=== PATIENT | female | born 1975 | race African-American/Black ===

== ENCOUNTER 2021-04-15 05:50 | Inpatient (IN) | payer SELFPAY ==
[2021-04-15] MEDS ORDERED: Ketorolac Tromethamine 30 MG/ML VIAL ONE (06:14)
[2021-04-15] MEDS ORDERED: Ondansetron PF 4 MG/2 ML Vial ONE (06:14)
[2021-04-15] MEDS ORDERED: Piperacillin/Tazobactam 3.375 GM VIAL ONE (06:14)
[2021-04-15 06:29] LABS: Hemoglobin 10.5 g/dL (12.0-16.0); Mean Corpuscular HGB CONC 32.7 g/dL (32.0-36.0); Mean Corpuscular Hemoglobin 30.1 pg (27.0-31.0); Mean Platelet Volume 8.1 fL (7.4-10.4); Platelet Count 433 thou/uL (130-400); RBC Distribution Width 12.6 % (11.5-14.5); Red Blood Cell (RBC) Count 3.48 mill/uL (4.20-5.40); White Blood Cell (WBC) Count 18.7 thou/uL (4.8-10.8)
[2021-04-15 06:48] LABS: ALT (SGPT) 37 U/L (8-55); AST (SGOT) 41 U/L (5-34); Albumin 2.9 g/dL (3.5-5.0); Alkaline Phosphatase 150 U/L (40-110); Anion Gap 15 mmol/L (10-20); BUN (Urea Nitrogen) 9 mg/dL (7.0-18.7); Bilirubin, Total 1.2 mg/dL (0.2-1.2); Calc. Creatinine Clearance 0 mL/min (70-130); Calcium 8.6 mg/dL (7.8-10.44); Carbon Dioxide 26 mmol/L (22-29); Chloride 96 mmol/L (98-107); Globulin 4.5 g/dL (2.4-3.5); Glucose 156 mg/dL (70-105); Lipase 23 U/L (8-78); Protein, Total 7.4 g/dL (6.0-8.3); Sodium 134 mmol/L (136-145)
[2021-04-15 06:49] LABS: BHCG - Serum Negative (NEGATIVE); Pregs Control Background? CLEAR/WHITE (CLR/WHITE); Pregs Control Bar Appear? YES (CONTROL BAR)
[2021-04-15 06:50] LABS: Band 28 % (5-11); Lymphocytes 5 % (21-51); MDiff Complete? YES; Monocytes 4 % (0-10); Neutrophil 63 % (42-75)
[2021-04-15 06:54] LABS: Potassium 2.8 mmol/L (3.5-5.1)
[2021-04-15] MEDS ORDERED: Metoclopramide HCl 10 MG/2 ML VIAL ONE (07:01)
[2021-04-15] MEDS ORDERED: Vancomycin 1 GM/200 ML BAG ONE (07:07)
[2021-04-15 07:50] LABS: Bilirubin Negative (Negative); Blood, Urine Negative (Negative); Clarity Clear (Clear); Glucose, Urine (Dipstick) Normal (Negative); Ketone, Urine Negative (Negative); Leukocyte Negative Leu/uL (Negative); Nitrite Negative (Negative); Protein, Urine (Dipstick) 20 mg/dL (Neg-Trace); Specific Gravity, Urine 1.045 (1.002-1.036); Urobilinogen Normal mg/dL (Less than 2); pH, Urine 5.5 (5.0-9.0)
[2021-04-15] MEDS ORDERED: Iopamidol-370 76% 500 ML 1 ML ONE (08:35)
[2021-04-15] MEDS ORDERED: Pot Chloride/Pot Bicarb/Cit Ac 25 mEq Effervescent Tablet ONE (08:54)
[2021-04-15 09:21] LABS: Lactic Acid 2.7 mmol/L (0.5-2.2)
[2021-04-15] MEDS ORDERED: Piperacillin/Tazobactam 3.375 GM in Sodium Chloride 0.9% 100 ML IVPB SCH (09:30)
[2021-04-15] MEDS ORDERED: Lactated Ringer's 1,000 ML IV SCH (09:45)
[2021-04-15 10:12] LABS: SARS-CoV-2 NAA Rapid Test Not Detected (NotDetected)
[2021-04-15] MEDS ORDERED: HYDROcodone/Acetaminophen 5/325 mg Tablet PO PRN (11:53)
[2021-04-15] MEDS ORDERED: Ondansetron ODT 4 MG TAB PO PRN (11:53)
[2021-04-15] MEDS ORDERED: Morphine 2 MG/ML VIAL SLOW IVP PRN (11:53)
[2021-04-15] MEDS ORDERED: Ondansetron PF 4 MG/2 ML Vial IVP PRN (11:53)
[2021-04-15] MEDS ORDERED: Potassium Chloride 20 MEQ in Lactated Ringer's 1,000 ML IV SCH (12:00)
[2021-04-15] MEDS: Potassium Chloride 20 MEQ in Lactated Ringer's 1,000 ML IV SCH ×2 (12:56→22:05)
[2021-04-15] MEDS: Piperacillin/Tazobactam 3.375 GM in Sodium Chloride 0.9% 100 ML IVPB SCH ×2 (14:44→22:06)
[2021-04-15] MEDS: Famotidine/PF 20 mg/2ml Vial SLOW IVP SCH (22:05)
[2021-04-15] MEDS: Cefepime 2 GM in Sodium Chloride 0.9% 100 ML IVPB SCH (22:06)
[2021-04-16 05:04] LABS: Hemoglobin 9.3 g/dL (12.0-16.0); Mean Corpuscular HGB CONC 33.6 g/dL (32.0-36.0); Mean Corpuscular Hemoglobin 31.2 pg (27.0-31.0); Mean Corpuscular Volume 92.7 fL (78.0-98.0); Mean Platelet Volume 7.9 fL (7.4-10.4); Platelet Count 388 thou/uL (130-400); RBC Distribution Width 12.9 % (11.5-14.5); Red Blood Cell (RBC) Count 2.99 mill/uL (4.20-5.40); White Blood Cell (WBC) Count 13.7 thou/uL (4.8-10.8)
[2021-04-16 05:24] LABS: Anion Gap 11 mmol/L (10-20); BUN (Urea Nitrogen) 6 mg/dL (7.0-18.7); Calc. Creatinine Clearance 142 mL/min (70-130); Calcium 8.4 mg/dL (7.8-10.44); Carbon Dioxide 27 mmol/L (22-29); Chloride 102 mmol/L (98-107); Glucose 111 mg/dL (70-105); Potassium 3.7 mmol/L (3.5-5.1); Sodium 136 mmol/L (136-145)
[2021-04-16 05:32] LABS: Band 50 % (5-11); Lymphocytes 18 % (21-51); MDiff Complete? YES; Monocytes 5 % (0-10); Neutrophil 26 % (42-75); Reactive Lymphocytes 1 % (0-10); Vacuoles SLIGHT
[2021-04-16] MEDS: Piperacillin/Tazobactam 3.375 GM in Sodium Chloride 0.9% 100 ML IVPB SCH ×3 (06:27→21:02)
[2021-04-16] MEDS: Potassium Chloride 20 MEQ in Lactated Ringer's 1,000 ML IV SCH ×2 (06:29→15:48)
[2021-04-16] MEDS ORDERED: Vancomycin HCl 1.25 GM in Sodium Chloride 0.9% 250 ML 250 ML IVPB SCH (08:00)
[2021-04-16] MEDS ORDERED: Vancomycin HCl 1 GM in Sodium Chloride 0.9% 250 ML 250 ML IVPB SCH (09:00)
[2021-04-16] MEDS ORDERED: Midazolam HCl 2 mg/2 ml Vial ONE (09:15)
[2021-04-16] MEDS ORDERED: Bupivacaine PF 0.5% 30 ML VIAL ONE (09:15)
[2021-04-16] MEDS ORDERED: Fentanyl 100 MCG/2 ML VIAL ONE ×3 (09:15→14:24)
[2021-04-16] MEDS ORDERED: Dexamethasone 20 MG/5 ML VIAL ONE (10:40)
[2021-04-16] MEDS ORDERED: Lidocaine 1% PF 5 ML VIAL ONE (10:40)
[2021-04-16] MEDS ORDERED: Ondansetron PF 4 MG/2 ML Vial ONE (10:40)
[2021-04-16] MEDS ORDERED: Glycopyrrolate 0.2 MG/ML 5 ML SYRINGE ONE (10:40)
[2021-04-16] MEDS ORDERED: PROPOFOL 200 MG/20 ML VIAL ONE (10:40)
[2021-04-16] MEDS ORDERED: Rocuronium Bromide 10 MG/ML (10ML VIAL) ONE (10:40)
[2021-04-16] MEDS: Enoxaparin Sodium 40 MG/0.4 ML SYRINGE SC SCH (10:53)
[2021-04-16] MEDS ORDERED: SUGAMMADEX SODIUM 200 MG/2 ML VIAL ONE (13:29)
[2021-04-16] MEDS ORDERED: Ondansetron HCl/PF 4 MG/2 ML Vial IVP PRN (13:42)
[2021-04-16] MEDS ORDERED: fentaNYL Citrate/PF 2,000 MCG in Sodium Chloride 0.9% 60 ML IV PRN ×2 (13:42→13:47)
[2021-04-16] MEDS ORDERED: Ondansetron PF 4 MG/2 ML Vial IVP PRN ×2 (13:42→13:47)
[2021-04-16] MEDS ORDERED: Zolpidem Tartrate 5 MG TAB PO PRN ×2 (13:42→13:47)
[2021-04-16] MEDS ORDERED: diphenhydrAMINE 50 MG/ML VIAL IVP PRN ×2 (13:42→13:47)
[2021-04-16] MEDS ORDERED: Promethazine HCl 25 MG/ML VIAL IM PRN ×3 (13:42→13:47)
[2021-04-16] MEDS ORDERED: diphenhydrAMINE 50 MG/ML VIAL IM PRN ×2 (13:42→13:47)
[2021-04-16] MEDS ORDERED: Naloxone HCl 0.4 mg/ml Vial IV PRN ×2 (13:42→13:47)
[2021-04-16] MEDS ORDERED: diphenhydrAMINE 25 MG CAP PO PRN ×2 (13:42→13:47)
[2021-04-16] MEDS ORDERED: Promethazine HCl 25 MG/ML VIAL IVPB PRN (13:42)
[2021-04-16] MEDS ORDERED: Communication Order-Pharmacy FS SCH ×2 (13:45→14:00)
[2021-04-16] MEDS ORDERED: Sodium Chloride 0.9% 10 ML ONE (14:03)
[2021-04-16 14:23] LABS: Hemoglobin 9.6 g/dL (12.0-16.0); Mean Corpuscular HGB CONC 32.8 g/dL (32.0-36.0); Mean Corpuscular Hemoglobin 30.9 pg (27.0-31.0); Mean Platelet Volume 8.5 fL (7.4-10.4); Platelet Count 330 thou/uL (130-400); White Blood Cell (WBC) Count 12.5 thou/uL (4.8-10.8)
[2021-04-16 14:42] LABS: Band 32 % (5-11); Lymphocytes 8 % (21-51); MDiff Complete? YES; Metamyelocyte 3 % (0-0); Monocytes 2 % (0-10); Neutrophil 54 % (42-75); Platelet Morphology Comment Appears Adequate; Polychromasia SLIGHT = 2-3 cells (100X) (0-2/hpf); Reactive Lymphocytes 1 % (0-10); Vacuoles SLIGHT
[2021-04-16] MEDS ORDERED: Phenylephrine 40 MG in Sodium Chloride 0.9% 250 ML 250 ML IVPB PRN (15:31)
[2021-04-16] MEDS ORDERED: niCARdipine 25 MG in Sodium Chloride 0.9% 250 ML 250 ML IVPB PRN (15:31)
[2021-04-16] MEDS: Cefepime 2 GM in Sodium Chloride 0.9% 100 ML IVPB SCH ×2 (15:43→21:58)
[2021-04-16] MEDS: Famotidine/PF 20 mg/2ml Vial SLOW IVP SCH ×2 (15:44→21:59)
[2021-04-16] MEDS: Sodium Chloride 0.9% 1,000 ML IV SCH (15:46)
[2021-04-16] MEDS ORDERED: Piperacillin/Tazobactam 3.375 GM VIAL ONE (20:26)
[2021-04-16] MEDS ORDERED: Sodium Chloride 0.9% 100 ML ONE (20:33)
[2021-04-16] MEDS ORDERED: Ketorolac Tromethamine 30 MG/ML VIAL ONE (20:45)
[2021-04-17] MEDS: Vancomycin HCl 1.25 GM in Sodium Chloride 0.9% 250 ML 250 ML IVPB SCH ×3 (00:26→23:54)
[2021-04-17] MEDS: Ketorolac Tromethamine 30 MG/ML VIAL IVP SCH ×4 (03:39→20:39)
[2021-04-17 04:09] LABS: Anion Gap 13 mmol/L (10-20); BUN (Urea Nitrogen) 10 mg/dL (7.0-18.7); Calc. Creatinine Clearance 100 mL/min (70-130); Calcium 7.7 mg/dL (7.8-10.44); Carbon Dioxide 21 mmol/L (22-29); Chloride 103 mmol/L (98-107); Glucose 110 mg/dL (70-105); Potassium 4.6 mmol/L (3.5-5.1); Sodium 132 mmol/L (136-145)
[2021-04-17 04:58] LABS: Band 16 % (5-11); Eosinophils 1 % (0-10); Hemoglobin 8.9 g/dL (12.0-16.0); Lymphocytes 13 % (21-51); MDiff Complete? YES; Mean Corpuscular Hemoglobin 31.1 pg (27.0-31.0); Mean Corpuscular Volume 94.2 fL (78.0-98.0); Mean Platelet Volume 7.7 fL (7.4-10.4); Monocytes 6 % (0-10); Neutrophil 60 % (42-75); Platelet Count 475 thou/uL (130-400); Platelet Morphology Comment Appears Increased; RBC Morphology Normal; Reactive Lymphocytes 4 % (0-10); Red Blood Cell (RBC) Count 2.87 mill/uL (4.20-5.40); White Blood Cell (WBC) Count 16.3 thou/uL (4.8-10.8)
[2021-04-17] MEDS: Piperacillin/Tazobactam 3.375 GM in Sodium Chloride 0.9% 100 ML IVPB SCH ×3 (05:25→21:36)
[2021-04-17] MEDS: Sodium Chloride 0.9% 1,000 ML IV SCH (05:25)
[2021-04-17] MEDS ORDERED: Bisacodyl 5 MG TAB PO PRN (07:33)
[2021-04-17] MEDS ORDERED: Bisacodyl 10 MG SUPP PR PRN (07:33)
[2021-04-17] MEDS: Famotidine 20 MG TAB PO SCH ×2 (08:32→20:39)
[2021-04-17] MEDS: MULTIVIT/IRON SULF/FOLIC ACID 1 EACH TAB PO SCH (08:33)
[2021-04-17] MEDS: Enoxaparin Sodium 40 MG/0.4 ML SYRINGE SC SCH (08:33)
[2021-04-17] MEDS: Famotidine/PF 20 mg/2ml Vial SLOW IVP SCH ×2 (08:34→20:40)
[2021-04-17] MEDS: Polyethylene Glycol 3350 17 GM Packet PO SCH (08:34)
[2021-04-17] MEDS: Acetaminophen 325 MG TAB PO PRN ×2 (13:16→20:39)
[2021-04-17 22:16] LABS: Vancomycin, Trough 24.2 ug/mL
[2021-04-17] MEDS: Vancomycin 1 GM in Premix Bag 1 BAG IVPB SCH (23:44)
[2021-04-18] MEDS: Ketorolac Tromethamine 30 MG/ML VIAL IVP SCH ×2 (04:00→08:19)
[2021-04-18] MEDS: Piperacillin/Tazobactam 3.375 GM in Sodium Chloride 0.9% 100 ML IVPB SCH ×3 (05:22→22:10)
[2021-04-18 06:09] LABS: Band 15 % (5-11); Eosinophils 1 % (0-10); Hemoglobin 8.3 g/dL (12.0-16.0); Lymphocytes 9 % (21-51); MDiff Complete? YES; Mean Corpuscular HGB CONC 31.9 g/dL (32.0-36.0); Mean Corpuscular Hemoglobin 29.7 pg (27.0-31.0); Mean Corpuscular Volume 92.9 fL (78.0-98.0); Mean Platelet Volume 7.3 fL (7.4-10.4); Monocytes 3 % (0-10); Neutrophil 72 % (42-75); Platelet Count 444 thou/uL (130-400); Platelet Morphology Comment Appears Increased; RBC Distribution Width 13.1 % (11.5-14.5); Red Blood Cell (RBC) Count 2.81 mill/uL (4.20-5.40); White Blood Cell (WBC) Count 21.1 thou/uL (4.8-10.8)
[2021-04-18 06:36] LABS: Anion Gap 10 mmol/L (10-20); BUN (Urea Nitrogen) 12 mg/dL (7.0-18.7); Calc. Creatinine Clearance 69 mL/min (70-130); Calcium 7.5 mg/dL (7.8-10.44); Carbon Dioxide 23 mmol/L (22-29); Chloride 101 mmol/L (98-107); Glucose 116 mg/dL (70-105); Potassium 3.4 mmol/L (3.5-5.1); Sodium 131 mmol/L (136-145)
[2021-04-18] MEDS: Enoxaparin Sodium 40 MG/0.4 ML SYRINGE SC SCH (08:19)
[2021-04-18] MEDS: Famotidine/PF 20 mg/2ml Vial SLOW IVP SCH (08:19)
[2021-04-18] MEDS: Polyethylene Glycol 3350 17 GM Packet PO SCH (08:24)
[2021-04-18] MEDS: Famotidine 20 MG TAB PO SCH ×2 (08:24→22:10)
[2021-04-18] MEDS ORDERED: Sodium Chloride 0.9% 1,000 ML IV SCH (09:00)
[2021-04-18] MEDS: MULTIVIT/IRON SULF/FOLIC ACID 1 EACH TAB PO SCH (09:45)
[2021-04-18] MEDS: Sodium Chloride 0.9% 1,000 ML IV SCH (11:11)
[2021-04-18] MEDS: Vancomycin 1 GM in Premix Bag 1 BAG IVPB SCH (11:14)
[2021-04-18] MEDS ORDERED: Potassium Chloride 20 MEQ TAB PO SCH (13:15)
[2021-04-18] MEDS: Acetaminophen 325 MG TAB PO PRN (18:48)
[2021-04-19] MEDS: Acetaminophen 325 MG TAB PO PRN (03:54)
[2021-04-19] MEDS: Sodium Chloride 0.9% 1,000 ML IV SCH (03:55)
[2021-04-19] MEDS: Piperacillin/Tazobactam 3.375 GM in Sodium Chloride 0.9% 100 ML IVPB SCH ×3 (05:32→22:43)
[2021-04-19 06:08] LABS: Anion Gap 10 mmol/L (10-20); BUN (Urea Nitrogen) 11 mg/dL (7.0-18.7); Calc. Creatinine Clearance 57 mL/min (70-130); Calcium 7.1 mg/dL (7.8-10.44); Carbon Dioxide 23 mmol/L (22-29); Chloride 106 mmol/L (98-107); Glucose 119 mg/dL (70-105); Sodium 135 mmol/L (136-145)
[2021-04-19 06:18] LABS: Band 7 % (5-11); Lymphocytes 8 % (21-51); MDiff Complete? YES; Mean Corpuscular HGB CONC 32.5 g/dL (32.0-36.0); Mean Corpuscular Hemoglobin 30.1 pg (27.0-31.0); Mean Corpuscular Volume 92.7 fL (78.0-98.0); Mean Platelet Volume 7.2 fL (7.4-10.4); Metamyelocyte 1 % (0-0); Monocytes 2 % (0-10); Neutrophil 78 % (42-75); Platelet Count 426 thou/uL (130-400); Platelet Morphology Comment Appears Increased; RBC Distribution Width 13.3 % (11.5-14.5); RBC Morphology Normal; Reactive Lymphocytes 4 % (0-10); Red Blood Cell (RBC) Count 2.67 mill/uL (4.20-5.40); White Blood Cell (WBC) Count 23.2 thou/uL (4.8-10.8)
[2021-04-19] MEDS: Polyethylene Glycol 3350 17 GM Packet PO SCH (08:46)
[2021-04-19] MEDS: Famotidine/PF 20 mg/2ml Vial SLOW IVP SCH (09:53)
[2021-04-19] MEDS: Heparin 5,000 UNITS/ML VIAL SC SCH ×2 (09:59→20:22)
[2021-04-19] MEDS: Famotidine 20 MG TAB PO SCH ×2 (09:59→20:22)
[2021-04-19] MEDS: MULTIVIT/IRON SULF/FOLIC ACID 1 EACH TAB PO SCH (10:00)
[2021-04-19 11:32] LABS: Vancomycin, Trough 20.9 ug/mL
[2021-04-19] MEDS: HYDROcodone/Acetaminophen 5/325 mg Tablet PO PRN (20:21)
[2021-04-20] MEDS: Sodium Chloride 0.9% 1,000 ML IV SCH ×2 (03:20→22:12)
[2021-04-20] MEDS: Piperacillin/Tazobactam 3.375 GM in Sodium Chloride 0.9% 100 ML IVPB SCH ×3 (05:14→22:12)
[2021-04-20 05:38] LABS: Band 6 % (5-11); Eosinophils 1 % (0-10); Hemoglobin 7.2 g/dL (12.0-16.0); Hypochromia SLIGHT = 6-15 cells (100X) (0-5/hpf); Lymphocytes 17 % (21-51); MDiff Complete? YES; Mean Corpuscular HGB CONC 30.2 g/dL (32.0-36.0); Mean Corpuscular Hemoglobin 28.1 pg (27.0-31.0); Mean Platelet Volume 7.2 fL (7.4-10.4); Neutrophil 76 % (42-75); Platelet Count 469 thou/uL (130-400); Platelet Morphology Comment Appears Increased; RBC Distribution Width 13.5 % (11.5-14.5); Red Blood Cell (RBC) Count 2.56 mill/uL (4.20-5.40)
[2021-04-20 05:46] LABS: Anion Gap 9 mmol/L (10-20); BUN (Urea Nitrogen) 11 mg/dL (7.0-18.7); Calc. Creatinine Clearance 55 mL/min (70-130); Calcium 7.8 mg/dL (7.8-10.44); Carbon Dioxide 24 mmol/L (22-29); Chloride 109 mmol/L (98-107); Glucose 99 mg/dL (70-105); Potassium 3.8 mmol/L (3.5-5.1); Sodium 138 mmol/L (136-145)
[2021-04-20] MEDS: Polyethylene Glycol 3350 17 GM Packet PO SCH (08:29)
[2021-04-20] MEDS: Heparin 5,000 UNITS/ML VIAL SC SCH ×2 (08:30→20:08)
[2021-04-20] MEDS: Famotidine 20 MG TAB PO SCH (08:30)
[2021-04-20] MEDS: MULTIVIT/IRON SULF/FOLIC ACID 1 EACH TAB PO SCH (09:00)
[2021-04-20] MEDS ORDERED: Pantoprazole 40 MG VIAL IVP SCH (09:45)
[2021-04-20] MEDS ORDERED: Albumin 25% 25 GM/100 ML BOT IVPB SCH (13:42)
[2021-04-20 14:31] LABS: Hemoglobin 7.8 g/dL (12.0-16.0)
[2021-04-20 14:31] LABS: Bacteria/HPF None Seen HPF (None Seen); Bilirubin Negative (Negative); Blood, Urine Negative (Negative); Clarity Clear (Clear); Glucose, Urine (Dipstick) Normal (Negative); Ketone, Urine Negative (Negative); Leukocyte Negative Leu/uL (Negative); Nitrite Negative (Negative); Protein, Urine (Dipstick) Negative (Neg-Trace); RBC/HPF None Seen HPF (0-3); Specific Gravity, Urine 1.004 (1.002-1.036); Squamous Epithelial 0-3 HPF (0-3); Urobilinogen Normal mg/dL (Less than 2); WBC/HPF 0-3 HPF (0-3); pH, Urine 5.5 (5.0-9.0)
[2021-04-20 14:32] LABS: Urine Culture Reflex No No
[2021-04-20 14:51] LABS: Creatinine, Urine 24.54 mg/dL (47-110); Protein, Urine Random Quant Less than 10 mg/dL (1-14); Sodium, Urine 22 mmol/L (Not Available); Urea Nitrogen, Random Urine 101 mg/dl
[2021-04-20] MEDS: HYDROcodone/Acetaminophen 5/325 mg Tablet PO PRN (20:07)
[2021-04-20] MEDS: Pantoprazole 40 MG VIAL IVP SCH (20:08)
[2021-04-21] MEDS: Piperacillin/Tazobactam 3.375 GM in Sodium Chloride 0.9% 100 ML IVPB SCH (05:28)
[2021-04-21] MEDS: HYDROcodone/Acetaminophen 5/325 mg Tablet PO PRN ×4 (05:28→19:43)
[2021-04-21 06:16] LABS: Band 7 % (5-11); Eosinophils 4 % (0-10); Hemoglobin 7.5 g/dL (12.0-16.0); Lymphocytes 13 % (21-51); MDiff Complete? YES; Mean Corpuscular HGB CONC 33.1 g/dL (32.0-36.0); Mean Corpuscular Hemoglobin 30.7 pg (27.0-31.0); Mean Corpuscular Volume 92.7 fL (78.0-98.0); Metamyelocyte 1 % (0-0); Monocytes 6 % (0-10); Myelocyte 1 % (0-0); Neutrophil 68 % (42-75); Nucleated RBC 1 % (0); Platelet Count 436 thou/uL (130-400); Platelet Morphology Comment Appears Increased; RBC Distribution Width 13.6 % (11.5-14.5); Red Blood Cell (RBC) Count 2.45 mill/uL (4.20-5.40); White Blood Cell (WBC) Count 18.4 thou/uL (4.8-10.8)
[2021-04-21 06:23] LABS: Albumin 2.4 g/dL (3.5-5.0); Anion Gap 11 mmol/L (10-20); BUN (Urea Nitrogen) 9 mg/dL (7.0-18.7); BUN/Creatinine Ratio 4.79; Calc. Creatinine Clearance 55 mL/min (70-130); Calcium 7.9 mg/dL (7.8-10.44); Carbon Dioxide 23 mmol/L (22-29); Chloride 107 mmol/L (98-107); Glucose 109 mg/dL (70-105); Phosphorus 3.1 mg/dL (2.3-4.7); Potassium 3.6 mmol/L (3.5-5.1); Sodium 137 mmol/L (136-145)
[2021-04-21] MEDS: MULTIVIT/IRON SULF/FOLIC ACID 1 EACH TAB PO SCH (09:00)
[2021-04-21] MEDS: Pantoprazole 40 MG VIAL IVP SCH ×2 (09:00→21:01)
[2021-04-21] MEDS: Heparin 5,000 UNITS/ML VIAL SC SCH ×2 (09:00→21:06)
[2021-04-21] MEDS: Amoxicillin/Potassium Clav 875 MG TAB PO SCH ×2 (09:00→21:01)
[2021-04-21] MEDS: Albumin 25% 25 GM/100 ML BOT IVPB SCH ×2 (09:00→14:00)
[2021-04-21] MEDS: Polyethylene Glycol 3350 17 GM Packet PO SCH (09:00)
[2021-04-21 15:57] LABS: Iron 20 ug/dL (50-170); Iron Binding Capacity, Total 103 mcg/dL (265-497)
[2021-04-21] MEDS ORDERED: GoLYTELY 4,000 ml Bottle PO SCH (17:00)
[2021-04-21] MEDS: Sodium Chloride 0.9% 1,000 ML IV SCH (17:45)
[2021-04-22] MEDS: HYDROcodone/Acetaminophen 5/325 mg Tablet PO PRN ×3 (00:05→19:53)
[2021-04-22 05:03] LABS: #Eosinphils 0.2 thou/uL (0.0-0.7); #Monocytes 1.1 thou/uL (0.11-0.59); #Neutrophils 14.2 thou/uL (1.40-6.50); %Basophils 0.1 % (0.0-1.0); %Eosinophils 1.3 % (0.0-10.0); %Lymphocytes 11.4 % (21.0-51.0); %Monocytes 6.2 % (0.0-10.0); Hemoglobin 7.2 g/dL (12.0-16.0); Mean Corpuscular HGB CONC 33.3 g/dL (32.0-36.0); Mean Corpuscular Hemoglobin 30.8 pg (27.0-31.0); Mean Corpuscular Volume 92.7 fL (78.0-98.0); Mean Platelet Volume 6.7 fL (7.4-10.4); Platelet Count 434 thou/uL (130-400); RBC Distribution Width 13.7 % (11.5-14.5); Red Blood Cell (RBC) Count 2.32 mill/uL (4.20-5.40); White Blood Cell (WBC) Count 17.5 thou/uL (4.8-10.8)
[2021-04-22 05:29] LABS: Albumin 2.6 g/dL (3.5-5.0); Anion Gap 11 mmol/L (10-20); BUN (Urea Nitrogen) 6 mg/dL (7.0-18.7); Calc. Creatinine Clearance 67 mL/min (70-130); Calcium 8.1 mg/dL (7.8-10.44); Carbon Dioxide 22 mmol/L (22-29); Chloride 109 mmol/L (98-107); Glucose 91 mg/dL (70-105); Phosphorus 3.3 mg/dL (2.3-4.7); Potassium 3.8 mmol/L (3.5-5.1); Sodium 138 mmol/L (136-145)
[2021-04-22] MEDS ORDERED: PHENYLEPHRINE-NS 100 MCG/ML 10 ML SYRINGE ONE (10:20)
[2021-04-22] MEDS ORDERED: PROPOFOL 200 MG/20 ML VIAL ONE (10:20)
[2021-04-22] MEDS ORDERED: Lidocaine 1% PF 5 ML VIAL ONE (10:20)
[2021-04-22] MEDS: MULTIVIT/IRON SULF/FOLIC ACID 1 EACH TAB PO SCH (11:40)
[2021-04-22] MEDS: Pantoprazole 40 MG VIAL IVP SCH (11:40)
[2021-04-22] MEDS: Heparin 5,000 UNITS/ML VIAL SC SCH ×2 (11:43→19:53)
[2021-04-22] MEDS: Amoxicillin/Potassium Clav 875 MG TAB PO SCH ×2 (11:43→19:52)
[2021-04-22] MEDS: Polyethylene Glycol 3350 17 GM Packet PO SCH (11:43)
[2021-04-22] MEDS ORDERED: IRON SUCROSE COMPLEX 100 MG/5 ML SLOW IVP SCH (17:15)
[2021-04-22] MEDS ORDERED: Iron, Sodium Ferric Gluconate 250 MG in Sodium Chloride 0.9% 250 ML 250 ML IVPB SCH (19:15)
[2021-04-22] MEDS: Famotidine 20 MG TAB PO SCH (19:52)
[2021-04-23] MEDS: HYDROcodone/Acetaminophen 5/325 mg Tablet PO PRN ×4 (03:48→22:27)
[2021-04-23 05:51] LABS: #Eosinphils 0.3 thou/uL (0.0-0.7); #Lymphocytes 2.2 thou/uL (1.20-3.40); #Monocytes 0.9 thou/uL (0.11-0.59); #Neutrophils 14.5 thou/uL (1.40-6.50); %Basophils 0.1 % (0.0-1.0); %Eosinophils 1.4 % (0.0-10.0); %Lymphocytes 12.5 % (21.0-51.0); %Monocytes 5.2 % (0.0-10.0); %Neutrophils 80.8 % (42.0-75.0); Hemoglobin 6.8 g/dL (12.0-16.0); Mean Corpuscular HGB CONC 32.9 g/dL (32.0-36.0); Mean Corpuscular Hemoglobin 30.4 pg (27.0-31.0); Mean Corpuscular Volume 92.4 fL (78.0-98.0); Mean Platelet Volume 6.9 fL (7.4-10.4); Platelet Count 399 thou/uL (130-400); RBC Distribution Width 13.9 % (11.5-14.5); Red Blood Cell (RBC) Count 2.23 mill/uL (4.20-5.40); White Blood Cell (WBC) Count 17.9 thou/uL (4.8-10.8)
[2021-04-23 06:24] LABS: Albumin 2.4 g/dL (3.5-5.0); Anion Gap 9 mmol/L (10-20); BUN (Urea Nitrogen) 7 mg/dL (7.0-18.7); BUN/Creatinine Ratio 4.73; Calc. Creatinine Clearance 70 mL/min (70-130); Calcium 8.1 mg/dL (7.8-10.44); Carbon Dioxide 25 mmol/L (22-29); Chloride 110 mmol/L (98-107); Glucose 101 mg/dL (70-105); Phosphorus 3.2 mg/dL (2.3-4.7); Potassium 3.6 mmol/L (3.5-5.1); Sodium 140 mmol/L (136-145)
[2021-04-23 08:16] LABS: SARS-CoV-2 PCR by NAA Not Detected (NotDetected)
[2021-04-23] MEDS: MULTIVIT/IRON SULF/FOLIC ACID 1 EACH TAB PO SCH (09:14)
[2021-04-23] MEDS: Polyethylene Glycol 3350 17 GM Packet PO SCH (09:15)
[2021-04-23] MEDS: Amoxicillin/Potassium Clav 875 MG TAB PO SCH ×2 (09:15→20:22)
[2021-04-23] MEDS: Famotidine 20 MG TAB PO SCH ×2 (09:15→20:22)
[2021-04-23] MEDS: Heparin 5,000 UNITS/ML VIAL SC SCH ×2 (09:15→20:35)
[2021-04-23] MEDS: Acetaminophen 325 MG TAB PO PRN (18:55)
[2021-04-23 20:40] VITALS: BMI 29.9
[2021-04-23 23:17] LABS: Hemoglobin 7.9 g/dL (12.0-16.0)
[2021-04-24] MEDS: HYDROcodone/Acetaminophen 5/325 mg Tablet PO PRN ×2 (03:41→12:32)
[2021-04-24 07:06] LABS: Hemoglobin 7.3 g/dL (12.0-16.0); Mean Corpuscular HGB CONC 32.8 g/dL (32.0-36.0); Mean Corpuscular Hemoglobin 29.8 pg (27.0-31.0); Mean Corpuscular Volume 90.8 fL (78.0-98.0); Platelet Count 434 thou/uL (130-400); RBC Distribution Width 14.5 % (11.5-14.5); Red Blood Cell (RBC) Count 2.46 mill/uL (4.20-5.40); White Blood Cell (WBC) Count 19.8 thou/uL (4.8-10.8)
[2021-04-24] MEDS: Famotidine 20 MG TAB PO SCH (09:08)
[2021-04-24] MEDS: MULTIVIT/IRON SULF/FOLIC ACID 1 EACH TAB PO SCH (09:08)
[2021-04-24] MEDS: Heparin 5,000 UNITS/ML VIAL SC SCH (09:08)
[2021-04-24] MEDS: Amoxicillin/Potassium Clav 875 MG TAB PO SCH (09:08)
[2021-04-24] MEDS: Polyethylene Glycol 3350 17 GM Packet PO SCH (09:09)
[2021-04-24 09:38] LABS: Albumin 2.5 g/dL (3.5-5.0); Anion Gap 10 mmol/L (10-20); BUN (Urea Nitrogen) 7 mg/dL (7.0-18.7); BUN/Creatinine Ratio 4.43; Calc. Creatinine Clearance 57 mL/min (70-130); Calcium 8.3 mg/dL (7.8-10.44); Carbon Dioxide 26 mmol/L (22-29); Chloride 108 mmol/L (98-107); Glucose 103 mg/dL (70-105); Phosphorus 3.9 mg/dL (2.3-4.7); Potassium 3.6 mmol/L (3.5-5.1); Sodium 140 mmol/L (136-145)
[2021-04-24 12:27] VITALS: BP 149/91; TEMP 98.6
[2021-04-24] MEDS ORDERED: Albumin 25% 25 GM/100 ML BOT IVPB SCH (13:00)
[2021-04-24] MEDS ORDERED: Torsemide 20 MG TAB PO SCH (18:00)
== END 2021-04-24 16:45 | disposition home or self-care (01) | DRG 853 ==
LOC: ERS 05:50 → ERHOLD 09:03 → 2SE 10:51 → SURG A 04-16 19:05 → CCU 04-16 21:46 → SURG A 04-17 10:09
PROVIDERS: ADMIT Internal Medicine; ATTEND Internal Medicine Geriatric Medicine
PROC: 0BNK0ZZ Release Right Lung, Open Approach (ICD-10-PCS; principal; 2021-04-16)
PROC: 0BJK4ZZ Inspection of Right Lung, Percutaneous Endoscopic Approach (ICD-10-PCS; 2021-04-16)
PROC: 0DJ08ZZ Inspection of Upper Intestinal Tract, Via Natural or Artificial Opening Endoscopic (ICD-10-PCS; 2021-04-22)
PROC: 0DJD8ZZ Inspection of Lower Intestinal Tract, Via Natural or Artificial Opening Endoscopic (ICD-10-PCS; 2021-04-22)
PROC: 30233N1 Transfusion of Nonautologous Red Blood Cells into Peripheral Vein, Percutaneous Approach (ICD-10-PCS; 2021-04-23)
DX: A41.9 Sepsis, unspecified organism (principal); J86.9 Pyothorax without fistula; J18.9 Pneumonia, unspecified organism; J96.01 Acute respiratory failure with hypoxia; N17.9 Acute kidney failure, unspecified; D62 Acute posthemorrhagic anemia; N18.9 Chronic kidney disease, unspecified; D50.9 Iron deficiency anemia, unspecified; Z20.822 Contact with and (suspected) exposure to COVID-19; E87.6 Hypokalemia; K64.4 Residual hemorrhoidal skin tags; D63.8 Anemia in other chronic diseases classified elsewhere; E86.0 Dehydration; E88.09 Other disorders of plasma-protein metabolism, not elsewhere classified; Z91.040 Latex allergy status; Z98.890 Other specified postprocedural states; Z87.891 Personal history of nicotine dependence
CPT/HCPCS: 36415; 36430; 71045; 71260; 74177; 76705; 80048; 80053; 80069; 80202; 81001; 81003; 82570; 82728; 83540; 83550; 83605; 83690; 84156; 84300; 84540; 84703; 85025; 85027; 86850; 86900; 86901; 86921; 87040; 87070; 87077; 87086; 87205; 93005; 96365; 96368; 96375; C1751; C9113; J0692; J1100; J1644; J1650; J1885; J2250; J2405; J2543; J2704; J2765; J2916; J3010; J3370; J3480; J3490; J7050; J7120; P9016; P9047; Q9967; S0020; S0028; U0002; U0003; U0005

== ENCOUNTER 2021-05-07 10:40 | Outpatient (CLI) | payer OTHER | END 2021-05-07 10:41 | disposition home or self-care (01) | LOC: BICRAD 10:40 | PROVIDERS: ATTEND Thoracic Surgery (Cardiothoracic Vascular Surgery) | DX: J86.9 Pyothorax without fistula (principal); R91.8 Other nonspecific abnormal finding of lung field | CPT/HCPCS: 71046 ==

== ENCOUNTER 2021-06-03 12:57 | Outpatient (CLI) | payer OTHER | END 2021-06-03 12:58 | disposition home or self-care (01) | LOC: BICRAD 12:57 | PROVIDERS: ATTEND Internal Medicine Critical Care Medicine | DX: R06.00 Dyspnea, unspecified (principal) | CPT/HCPCS: 71046 ==